=== PATIENT | male | born 1995 | race Caucasian/White ===

== ENCOUNTER 2021-03-25 13:07 | Emergency (ER) | payer OTHER, SELFPAY ==
--- NOTE | ~2021-03-25 | XR_ITS ---
XR lumbar spine 2-3V DATE: 03/25/2021 13:59 INDICATION: Right foot fall. Back pain. TECHNIQUE: AP, lateral, coned lateral lumbosacral views COMPARISON: None FINDINGS: Normal alignment of the lumbar spine. No fracture or bone destruction or spondylolisthesis. The lumbar pedicles are intact. Lumbar and lumbosacral interspaces appear relatively preserved. The sacroiliac joints appear normal. IMPRESSION: No significant abnormality Reviewed, dictated and finalized at location B. N BUYER IMPRESSION: No significant abnormality
--- NOTE | ~2021-03-25 | XR_ITS ---
XR sacrum coccyx min 2V DATE: 03/25/2021 13:59 INDICATION: 8 foot fall. Pain. TECHNIQUE: AP, angled AP and lateral views COMPARISON: None FINDINGS: There is evidence of a minimally posteriorly displaced mildly comminuted fracture at the lo wer aspect of the sacrum at the fifth sacral segment. The sacroiliac joints are intact. The coccyx appears intact. IMPRESSION: Suggestion of the fifth sacral segment fracture; consider CT correlation Reviewed, dictated and finalized at location B. ING MACHINE TENDER IMPRESSION: Suggestion of the fifth sacral segment fracture; consider CT correl ation
--- NOTE | ~2021-03-25 | XR_ITS ---
XR thoracic spine 3V DATE: 03/25/2021 13:59 INDICATION: 8 foot fall. Back pain. TECHNIQUE: AP, lateral and swimmer views COMPARISON: None FINDINGS: No fracture or dislocation or bone destruction. No paraspinal soft tissue thickening. IMPRESSION: Negative Reviewed, dictated and finalized at location B. R ENERGY ADVISOR IMPRESSION: Negative
--- NOTE | ~2021-03-25 | XR_ITS ---
EXAMINATION: XR pelvis 1-2V DATE: 03/25/2021 13:59 INDICATION: Pelvis injury. TECHNIQUE: An anteroposterior view of the pelvis was obtained. COMPARISON: None. FINDINGS: Bone alignment is normal. There is a lucent line overlying right greater trochanter. Joint spaces are normal. IMPRESSION: 1. Lucent line overlying right greater trochanter, which is indeterminate for nondisplaced acute frac ture. Reviewed, dictated and finalized at location A. ICAL CARE NURSE IMPRESSION: 1. Lucent line overlying right greater trochanter, which is indeterminate for n ondisplaced acute fracture.
--- NOTE | ~2021-03-25 | XR_ITS ---
XR chest 1V DATE: 03/25/2021 14:00 INDICATION: 8 foot fall TECHNIQUE: Supine AP chest COMPARISON: None FINDINGS: Normal heart size. No hilar or mediastinal enlargement. No pulmonary infiltrate or consolid ation, pleural effusion or pulmonary vascular congestion or pneumothorax. Included skeletal structure s are unremarkable. IMPRESSION: No active cardiopulmonary disease Reviewed, dictated and finalized at location B. ALS COLLECTOR/ANALYST
--- NOTE | ~2021-03-25 | CT_ITS ---
EXAMINATION: CT lumbar spine wo con DATE: 03/25/2021 15:37 INDICATION: Low back pain after fall TECHNIQUE: Computed tomography (CT) of the lumbar spine was performed without intravenous contrast. T he dose-length product was 1661.86 mGy-cm. Automated exposure control and iterative reconstruction te chnique were employed. COMPARISON: None FINDINGS: Wedge-shaped appearance to T12, likely chronic or developmental. No acute fracture or traum atic malalignment. Vertebral body heights are otherwise maintained. No significant disc narrowing. No significant paraspinal soft tissue abnormality. No spinal stenosis. There is a nondisplaced fracture of the coccyx. IMPRESSION: 1. Nondisplaced fracture of the coccyx. Reviewed, dictated and finalized at location A. ING MACHINE TENDER
--- NOTE | ~2021-03-25 | CT_ITS ---
EXAMINATION: CT hip RT wo con DATE: 03/25/2021 15:37 INDICATION: Right hip pain after fall TECHNIQUE: Computed tomography (CT) of the right hip was performed without intravenous contrast. The dose-length product was 594.01 mGy-cm. Automated exposure control and iterative reconstruction techni que were employed. COMPARISON: None FINDINGS: No fracture, subluxation or dislocation. There is anatomic alignment. No significant soft t issue abnormality. No foreign bodies. IMPRESSION: 1. No acute bone or joint abnormality. Reviewed, dictated and finalized at location A. K CUBER
[2021-03-25 13:09] VITALS: BP 123/77; PULSE 72; RESP 18; TEMP 36.7
--- NOTE | 2021-03-25 13:36 | ED.FALL ---
HPI - Fall General Chief Complaint: Fall Stated Complaint: 7'FT FALL, COCCYX PAIN Time Seen by Provider: 03/25/21 13:10 Source: patient and RN notes reviewed Mode of arrival: EMS Limitations: clinical condition History of Present Illness HPI Narrative: Patient fell out of the attic down on the hard ground 6 to 7 feet, landed on his bottom. Complaining of tailbone pain. Patient denies loss of consciousness, head injury, neck injury, back injury, chest pain, abdominal pain or lower extremity pain. Patient got up immediately then developed some dizzy feeling within 10 seconds of standing. Currently patient denying any dizziness or lightheadedness. Patient is healthy otherwise, does not smoke or drink or uses drugs Related Data Allergies Allergy/AdvReac Type Severity Reaction Status Date / Time No Known Allergies Allergy Verified 03/25/21 13:15 Review of Systems Review of Systems: CONSTITUTIONAL: Denies fever, chills, or sweats. EYES: Denies visual changes, redness, or discharge. ENT: Denies rhinorrhea, congestion, sore throat, or otalgia. CARDIOVASCULAR: Denies chest pain, palpitations, or edema. RESPIRATORY: Denies cough or dyspnea. GASTROINTESTINAL: Denies abdominal pain, nausea, vomiting, or diarrhea. GENITOURINARY: Denies dysuria or hematuria. SKIN: Denies rash or itching. MUSCULOSKELETAL: Denies back pain, joint pain, or myalgia. NEUROLOGIC: Denies headache, numbness, or weakness. PSYCHIATRIC: Denies anxiety or depression. Exam Narrative: General appearance: Well-developed, well-nourished Skin: Normal color, slight abrasion at the left lower back Head: Normocephalic, nontraumatic Eyes: Clear conjunctiva ENT: Oropharynx normal, ears normal, nose normal Neck: Supple, nontender Chest and respiratory: Airway patent, no respiratory distress, no accessory muscle use Heart: Regular rate/rhythm Abdomen: Soft, nontender, no organomegaly, quiet bowel sounds Vascular: Normal peripheral pulses, normal capillary refill. 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 Lucent line overlying right greater trochanter, which is indeterminate for nondisplaced acute fracture. Lumbar Spine X-Ray 03/25/21 14:02 IMPRESSION: No significant abnormality Chest X-Ray 03/25/21 14:03 IMPRESSION: No active cardiopulmonary disease Sacrum and Coccyx X-Ray 03/25/21 14:04 IMPRESSION: Suggestion of the fifth sacral segment fracture; consider CT correlation Lumbar Spine CT 03/25/21 15:46 IMPRESSION: 1. Nondisplaced fracture of the coccyx. Hip CT 03/25/21 15:54 IMPRESSION: 1. No acute bone or joint abnormality. Radiologist's impression: Impressions Thoracic Spine X-Ray 03/25/21 13:59 IMPRESSION: Negative Pelvis X-Ray 03/25/21 14:01
[2021-03-25 17:10] VITALS: BP 95/52; PULSE 100; RESP 18; O2SAT 98
[2021-03-25 18:04] VITALS: BP 91/50; PULSE 102; RESP 18; O2SAT 98
== END 2021-03-25 18:11 | disposition home or self-care (01) ==
PROVIDERS: Emergency Provider Emergency Medicine
DX: S32.2XXA Fracture of coccyx, initial encounter for closed fracture (principal); W17.89XA Other fall from one level to another, initial encounter
CPT/HCPCS: 71045; 72072; 72100; 72131; 72170; 72220; 73700; 99284